=== PATIENT | male | born 2000 | race Caucasian/White ===

== ENCOUNTER 2025-07-23 11:36 | Inpatient (IN) | payer SELFPAY ==
[~2025-07-23 11:36] MED LIST: Iopamidol-370 76% 500 ML MDV (1 ML CHARGE) ONE
[2025-07-23] MEDS ORDERED: Norepinephrine 8 MG/0.9% NS 250 ML ONE (11:44)
[2025-07-23] MEDS ORDERED: Magnesium 2 GM/50 ML BAG (IN WATER) ONE (11:54)
[2025-07-23 12:24] LABS: Acetaminophen Less than 10 mcg/mL (Less than 10); Salicylate Less than 8.0 mg/dL (Less than 8.0)
[2025-07-23 12:31] LABS: Hematocrit 49.3 % (42.0-52.0); Hemoglobin 14.5 g/dL (14.0-18.0); Mean Corpuscular Hemoglobin 27.6 pg (27.0-31.0); Mean Corpuscular Volume 93.7 fL (78.0-98.0); Platelet Count 188 10x3/uL (130-400); Red Blood Cell (RBC) Count 5.26 mill/uL (4.70-6.10); White Blood Cell (WBC) Count 21.68 10x3/uL (4.8-10.8)
[2025-07-23 12:37] LABS: ALT (SGPT) 7289 U/L (Less than 45)
[2025-07-23 12:55] LABS: Bacteria/HPF None Seen HPF (None Seen); CAUTI Indications for Culture Alt mental st,lethar; Glucose, Urine (Dipstick) Normal (Negative); Leukocyte Negative Leu/uL (Negative); Protein, Urine (Dipstick) 50 mg/dL (Neg-Trace); RBC/HPF 21-50 HPF (0-3); Specific Gravity, Urine 1.025 (1.002-1.036); WBC/HPF 0-3 HPF (0-3)
[2025-07-23 12:59] LABS: Cocaine Metabolite Screen PRELIM POSITIVE (Negative); THC/Cannabinoid Screen PRELIM POSITIVE (Negative); Tricyclic Screen Negative (Negative)
[2025-07-23 13:01] LABS: Anisocytosis SLIGHT = 6-15 cells HPF (0-5); Burr Cells SLIGHT = 2-5 cells HPF (0-1); Giant Platelets 1.0 % (0-5); Nucleated RBC (Manual Ct) 1 % (0); Platelet Adequacy Comment Platelets Normal; Polychromasia SLIGHT = 2-3 cells HPF (0-2); Smudge Cells 6.7 %
[2025-07-23 13:04] LABS: Sperm/HPF 4+ HPF (None Seen)
[2025-07-23 13:06] LABS: Urine Culture Reflex No No
[2025-07-23] MEDS ORDERED: Pantoprazole 40 MG VIAL ONE (13:11)
[2025-07-23 13:15] LABS: Analyzer IN Cardio ER; Base Excess (BEa) -21.4 mEq/L (-2.0 to +3.0); Calcium, Ionized (arterial) 1.00 mmol/L (1.12-1.30); Hematocrit-ABG 40 % (42.0-52.0); Hemoglobin (Hb) 13.7 g/dL (14.0-18.0); O2 Tension (PaO2), arterial 70.1 mmHg (80.0-100.0)
[2025-07-23 13:19] LABS: AST (SGOT) Greater than 4001 U/L (11-34); Albumin 2.6 g/dL (3.1-4.5); Alkaline Phosphatase 113 U/L (40-110); Anion Gap 43 mmol/L (10-20); BUN (Urea Nitrogen) 32 mg/dL (8.9-20.6); Bilirubin, Total 0.7 mg/dL (0.3-1.2); Calc. Creatinine Clearance 0 mL/min (70-130); Calcium 9.3 mg/dL (7.8-10.44); Carbon Dioxide 9 mmol/L (22-29); Chloride 103 mmol/L (98-107); Globulin 2.6 g/dL (2.4-3.5); Glucose 69 mg/dL (70-105); Potassium 8.0 mmol/L (3.5-5.1); Sodium 147 mmol/L (136-145)
[2025-07-23 13:28] LABS: CK (CPK) 4541 U/L (30-200)
[2025-07-23] MEDS ORDERED: Sodium Bicarb 50 MEQ/50 ML Abboject 8.4% SYRINGE ONE (13:45)
[2025-07-23] MEDS ORDERED: Pantoprazole 80 MG, Admixture Fee 1 EACH in Sodium Chloride 0.9% 100 ML IVPB SCH (14:00)
[2025-07-23] MEDS ORDERED: Albuterol 2.5 MG (0.5 mL) NEB ONE (14:20)
[2025-07-23] MEDS ORDERED: Albuterol 2.5 MG (3 mL) NEB ONE (14:20)
[2025-07-23] MEDS ORDERED: Furosemide 20 MG (2 mL) VIAL ONE (14:25)
[2025-07-23] MEDS ORDERED: Ondansetron PF 4 MG/2 ML Vial IVP PRN (14:35)
[2025-07-23] MEDS: Norepinephrine 8 MG/0.9% NS 250 ML IVPB PRN (15:05)
[2025-07-23] MEDS: Calcium Chloride 1 GM/10 ML Abboject SYRINGE IVP SCH (15:10)
[2025-07-23] MEDS: Sodium Bicarb 50 MEQ/50 ML Abboject 8.4% SYRINGE IVP SCH (15:10)
[2025-07-23] MEDS: Vasopressin In 0.9 % NaCl 40 UNIT in Premix 1 BAG IV SCH (15:30)
[2025-07-23 15:34] VITALS: BMI 24.2
[2025-07-23 15:37] LABS: Actual Bicarbonate (HCO3v) 13.5 mEq/L (22-28); Base Excess -20.0 mEq/L (-2.0 to +3.0); Calcium, Ionized (venous) 0.96 mmol/L (1.16-1.32); Chloride (VBG) 100 mmol/L (98-106); Hematocrit-VBG 40 % (42.0-52.0); Hemoglobin (Hb) 13.7 g/dL (13.2-17.3); Potassium (VBG) 6.98 mmol/L (3.70-5.30); Sodium 139 mmol/L (133-146)
[2025-07-23] MEDS ORDERED: Vancomycin Diaylsis Sliding Scale (Wt 71-99) FS SCH (15:45)
[2025-07-23] MEDS: Hydrocortisone Sod Succ/PF 100 mg/2 ml Vial IVP SCH ×2 (15:48→17:50)
[2025-07-23] MEDS: Calcium Chloride 1 GM/10 ML Abboject SYRINGE ONE (15:50)
[2025-07-23] MEDS: Sodium Bicarb 50 MEQ/50 ML Abboject 8.4% SYRINGE ONE (15:51)
[2025-07-23] MEDS: Norepinephrine 8 MG/0.9% NS 250 ML ONE (15:51)
[2025-07-23] MEDS: Vancomycin 1.5 GM / NS 500ML VIAL-2-BAG IVPB SCH (16:30)
[2025-07-23] MEDS: Vancomycin 1 GM in Premix 1 BAG IVPB SCH (16:36)
[2025-07-23 17:01] LABS: ALT (SGPT) 9316 U/L (Less than 45)
[2025-07-23 17:05] LABS: AST (SGOT) Greater than 4001 U/L (11-34); Albumin 2.3 g/dL (3.1-4.5); Alkaline Phosphatase 231 U/L (40-110); Anion Gap 35 mmol/L (10-20); BUN (Urea Nitrogen) 32 mg/dL (8.9-20.6); Bilirubin, Total 1.0 mg/dL (0.3-1.2); Calc. Creatinine Clearance 26 mL/min (70-130); Calcium 7.4 mg/dL (7.8-10.44); Carbon Dioxide 15 mmol/L (22-29); Chloride 103 mmol/L (98-107); Globulin 2.2 g/dL (2.4-3.5); Glucose 172 mg/dL (70-105); Potassium 6.3 mmol/L (3.5-5.1); Sodium 147 mmol/L (136-145)
[2025-07-23 17:14] LABS: HBSAB Concentration Less than 8.00 mIU/mL
[2025-07-23 18:08] LABS: Hep B Surf Ag Reflx Confirmation S/CO (NonReactive)
[2025-07-23 19:21] LABS: Potassium 5.4 mmol/L (3.5-5.1)
[2025-07-24 01:04] VITALS: TEMP 98.1
[2025-07-24] MEDS ORDERED: Scopolamine 1 mg/72 hour Patch TD PRN (01:59)
[2025-07-24] MEDS ORDERED: Glycopyrrolate 0.4 MG/ 2 ML VIAL SLOW IVP PRN (02:02)
[2025-07-24 09:17] LABS: pH, Arterial 6.875 (7.35-7.45)
[2025-07-24 09:18] LABS: Actual Bicarbonate (HCO3a) 12.6 mEq/L (22-28); CO2 Tension 69.7 mmHg (35.0-45.0); Potassium - ABG Lab 7.19 mmol/L (3.70-5.30)
[2025-07-25 04:12] LABS: Hep B Surface AG-Rflx Sendout Negative (Negative)
== END 2025-07-24 05:00 | disposition expired | DRG 917 ==
LOC: EDBD 11:36 → ERS 11:36 → CCU 14:28
PROVIDERS: ADMIT Internal Medicine; ATTEND Internal Medicine
PROC: 5A12012 Performance of Cardiac Output, Single, Manual (ICD-10-PCS; principal; 2025-07-23)
PROC: 5A1935Z Respiratory Ventilation, Less than 24 Consecutive Hours (ICD-10-PCS; 2025-07-23)
PROC: 3E033XZ Introduction of Vasopressor into Peripheral Vein, Percutaneous Approach (ICD-10-PCS; 2025-07-23)
PROC: 3E03329 Introduction of Other Anti-infective into Peripheral Vein, Percutaneous Approach (ICD-10-PCS; 2025-07-23)
PROC: 4A033R1 Measurement of Arterial Saturation, Peripheral, Percutaneous Approach (ICD-10-PCS; 2025-07-23)
PROC: 0BH17EZ Insertion of Endotracheal Airway into Trachea, Via Natural or Artificial Opening (ICD-10-PCS; 2025-07-23)
PROC: 02HV33Z Insertion of Infusion Device into Superior Vena Cava, Percutaneous Approach (ICD-10-PCS; 2025-07-23)
PROC: 4A02X4A Measurement of Cardiac Electrical Activity, Guidance, External Approach (ICD-10-PCS; 2025-07-23)
PROC: 0T9B70Z Drainage of Bladder with Drainage Device, Via Natural or Artificial Opening (ICD-10-PCS; 2025-07-23)
PROC: 0D9670Z Drainage of Stomach with Drainage Device, Via Natural or Artificial Opening (ICD-10-PCS; 2025-07-23)
DX: T40.5X1A Poisoning by cocaine, accidental (unintentional), initial encounter (principal); G93.41 Metabolic encephalopathy; J69.0 Pneumonitis due to inhalation of food and vomit; J96.01 Acute respiratory failure with hypoxia; K72.00 Acute and subacute hepatic failure without coma; J96.02 Acute respiratory failure with hypercapnia; N17.0 Acute kidney failure with tubular necrosis; M62.82 Rhabdomyolysis; E87.21 Acute metabolic acidosis; E87.1 Hypo-osmolality and hyponatremia; Z66 Do not resuscitate; Z51.5 Encounter for palliative care; T42.4X1A Poisoning by benzodiazepines, accidental (unintentional), initial encounter; T40.721A Poisoning by synthetic cannabinoids, accidental (unintentional), initial encounter; E87.5 Hyperkalemia; I12.9 Hypertensive chronic kidney disease with stage 1 through stage 4 chronic kidney disease, or unspecified chronic kidney disease; N18.30 Chronic kidney disease, stage 3 unspecified; R57.0 Cardiogenic shock; E16.2 Hypoglycemia, unspecified; I46.8 Cardiac arrest due to other underlying condition
CPT/HCPCS: 31500; 36415; 36416; 36556; 51702; 70450; 71045; 71260; 72125; 74177; 80306; 80307; 81001; 82550; 82805; 83605; 84484; 85025; 86706; 86850; 86900; 86901; 87340; 93005; 94002; 94760; 96361; 96365; 96366; 96367; 96375; 99292; J1720; J1815; J1940; J2060; J2270; J2470; J2543; J3475; J3490; J7030; J7070; J7611; Q9967